=== PATIENT | male | born 1950 | race Caucasian/White ===

== ENCOUNTER 2018-02-05 12:58 | Emergency (ER) | payer OTHER ==
[~2018-02-05] VITALS: Ht 188 cm; Wt 113.9 kg
[2018-02-05 13:34] VITALS: BP 130/78; Ht 188 cm; Wt 113.9 kg
== END 2018-02-05 16:02 | disposition home or self-care (01) ==
LOC: ED 12:58
DX: M54.41 Lumbago with sciatica, right side (principal)
CPT/HCPCS: J1885

== ENCOUNTER 2018-02-11 11:01 | Emergency (ER) | payer OTHER ==
[~2018-02-11] VITALS: Ht 188 cm; Wt 114.3 kg
[2018-02-11 11:07] VITALS: BP 138/103; Ht 188 cm; Wt 114.3 kg
== END 2018-02-11 12:17 | disposition home or self-care (01) ==
LOC: ED 11:01
DX: M54.41 Lumbago with sciatica, right side (principal)
CPT/HCPCS: J1885; J2930

== ENCOUNTER 2018-10-21 11:07 | Emergency (ER) | payer OTHER ==
[~2018-10-21] VITALS: Ht 193 cm; Wt 113.4 kg
[2018-10-21 11:20] VITALS: Ht 193 cm; Wt 113.4 kg
[2018-10-21 12:15] VITALS: BP 153/83
== END 2018-10-21 12:15 | disposition home or self-care (01) ==
LOC: ED 11:07
DX: S63.253A Unspecified dislocation of left middle finger, initial encounter (principal); X50.1XXA Overexertion from prolonged static or awkward postures, initial encounter; Y93.89 Activity, other specified; Y92.096 Garden or yard of other non-institutional residence as the place of occurrence of the external cause; Y99.8 Other external cause status
CPT/HCPCS: Q0092